=== PATIENT | female | born 1960 | race Caucasian/White ===

== ENCOUNTER 2022-01-05 09:37 | Inpatient (IN) ==
[2022-01-05] MEDS ORDERED: methylPREDNISolone SOD SUCC 125 mg 2 ML VIAL IV ONE (09:55)
[2022-01-05] MEDS ORDERED: C1 Esterase Inhib (Human) 500 UNIT INJ IV ONE ×3 (09:57→16:12)
[2022-01-05 10:41] LABS: ABS Lymphocytes 0.9 10^3/ul (1.0-4.8); ABS Monocytes 0.4 10^3/ul (0-0.8); ABS Neutrophils 3.6 10^3/ul (1.5-7.7); Eosinophil % 0.9 %; Hematocrit 38 % (35-47); Hemoglobin 13.1 g/dL (12.0-16.0); Lymphocyte % 17.5 %; Mean Corpuscular HGB Conc 35 g/dL (31-36); Mean Corpuscular Hemoglobin 31 pg (27-31); Mean Corpuscular Volume 90 fL (80-97); Mean Platelet Volume 6.9 fL (7.4-10.4); Platelet Count 206 10^3/uL (150-450); Red Blood Count 4.23 10^6 /uL (3.70-4.87); Red Cell Distribution Width 13 % (10-15); White Blood Count 4.9 10^3/uL (3.5-10.8)
[2022-01-05] MEDS ORDERED: Ondansetron 4 mg VIAL 2 MG/ML 2 ml VIAL IV ONE (11:03)
[2022-01-05] MEDS ORDERED: fentaNYL 100 mcg/2 ml 50 MCG/ML VIAL IV SLOW PU ONE ×3 (11:03→15:56)
[2022-01-05 11:48] LABS: ALT 13 U/L (7-52); AST 15 U/L (13-39); Albumin 4.3 g/dL (3.2-5.2); Albumin/Globulin Ratio 1.7 (1-3); Alkaline Phosphatase 85 U/L (35-149); Anion Gap 5 mmol/L (2-11); Blood Urea Nitrogen 15 mg/dL (6-24); CO2 Carbon Dioxide 30 mmol/L (22-32); Calcium 9.9 mg/dL (8.6-10.3); Chloride 107 mmol/L (101-111); Globulin 2.5 g/dL (2-4); Glucose 87 mg/dL (70-100); Potassium 4.2 mmol/L (3.5-5.0); Sodium 142 mmol/L (135-145); Total Protein 6.8 g/dL (6.4-8.9); eGFR CKD-EPI 99.6 (>60)
[2022-01-05 12:52] LABS: C Reactive Protein < 1.00 mg/L (<8.01); Lipase 22 U/L (11.0-82.0)
[2022-01-05] MEDS ORDERED: Iohexol 350 (CONTRAST) 500 ML MDV IV ONE (13:16)
[2022-01-05] MEDS: Lactated Ringers 1000 ml BAG 1,000 ML IV SCH ×2 (14:18→23:38)
[2022-01-05] MEDS: fentaNYL 100 mcg/2 ml 50 MCG/ML VIAL IV SLOW PU PRN ×2 (18:49→23:34)
[2022-01-05] MEDS: Ondansetron 4 mg VIAL 2 MG/ML 2 ml VIAL IV PRN (20:36)
[2022-01-06] MEDS: fentaNYL 100 mcg/2 ml 50 MCG/ML VIAL IV SLOW PU PRN ×7 (03:27→22:18)
[2022-01-06] MEDS: Ondansetron 4 mg VIAL 2 MG/ML 2 ml VIAL IV PRN ×3 (03:27→22:19)
[2022-01-06] MEDS ORDERED: fentaNYL 100 mcg/2 ml 50 MCG/ML VIAL IV SLOW PU PRN ×2 (03:53→05:31)
[2022-01-06 05:53] LABS: Hematocrit 35 % (35-47); Hemoglobin 12.4 g/dL (12.0-16.0); Mean Corpuscular HGB Conc 35 g/dL (31-36); Mean Corpuscular Hemoglobin 31 pg (27-31); Mean Corpuscular Volume 89 fL (80-97); Mean Platelet Volume 7.3 fL (7.4-10.4); Platelet Count 212 10^3/uL (150-450); Red Blood Count 3.93 10^6 /uL (3.70-4.87); Red Cell Distribution Width 13 % (10-15); White Blood Count 8.3 10^3/uL (3.5-10.8)
[2022-01-06 06:00] LABS: ABS Lymphocytes 0.9 10^3/ul (1.0-4.8); ABS Monocytes 0.5 10^3/ul (0-0.8); ABS Neutrophils 7.1 10^3/ul (1.5-7.7); Lymphocyte % 11.1 %
[2022-01-06 06:12] LABS: Albumin 3.9 g/dL (3.2-5.2); Albumin/Globulin Ratio 1.9 (1-3); Calcium 9.4 mg/dL (8.6-10.3); Globulin 2.1 g/dL (2-4); Potassium 3.8 mmol/L (3.5-5.0); Total Bilirubin 0.5 mg/dL (0.2-1.0); eGFR CKD-EPI 99.6 (>60)
[2022-01-06] MEDS ORDERED: fentaNYL 100 mcg/2 ml 50 MCG/ML VIAL IV SLOW PU ONE (06:25)
[2022-01-06] MEDS: D5W 1/2 NS 1000 ml BAG 1,000 ML IV SCH ×2 (10:48→17:48)
[2022-01-06] MEDS: C1 ESTERASE INHIBITOR SUBCUT SCH (11:58)
[2022-01-07] MEDS: fentaNYL 100 mcg/2 ml 50 MCG/ML VIAL IV SLOW PU PRN ×9 (01:52→23:06)
[2022-01-07] MEDS: D5W 1/2 NS 1000 ml BAG 1,000 ML IV SCH ×3 (01:55→21:12)
[2022-01-07] MEDS: Ondansetron 4 mg VIAL 2 MG/ML 2 ml VIAL IV PRN ×2 (06:29→18:47)
[2022-01-07] MEDS ORDERED: Metoclopramide 5 MG/ML VIAL (10 mg) IV PRN (10:46)
[2022-01-07] MEDS ORDERED: fentaNYL 100 mcg/2 ml 50 MCG/ML VIAL IV SLOW PU PRN (16:48)
[2022-01-07] MEDS: Nystatin TOP POWDER 15 GM BTL TOPICAL SCH (21:46)
[2022-01-08] MEDS: fentaNYL 100 mcg/2 ml 50 MCG/ML VIAL IV SLOW PU PRN ×10 (00:56→23:03)
[2022-01-08] MEDS: D5W 1/2 NS 1000 ml BAG 1,000 ML IV SCH ×2 (05:05→21:26)
[2022-01-08 07:23] LABS: Calcium 8.7 mg/dL (8.6-10.3); Potassium 3.6 mmol/L (3.5-5.0); eGFR CKD-EPI 101.1 (>60)
[2022-01-08 10:04] LABS: Hematocrit 35 % (35-47); Hemoglobin 12.5 g/dL (12.0-16.0); Mean Corpuscular HGB Conc 36 g/dL (31-36); Mean Corpuscular Hemoglobin 32 pg (27-31); Mean Corpuscular Volume 89 fL (80-97); Red Blood Count 3.96 10^6 /uL (3.70-4.87); Red Cell Distribution Width 13 % (10-15)
[2022-01-08 10:05] LABS: ABS Lymphocytes 0.9 10^3/ul (1.0-4.8); ABS Monocytes 0.4 10^3/ul (0-0.8); ABS Neutrophils 3.6 10^3/ul (1.5-7.7); Eosinophil % 0.8 %; Lymphocyte % 18.7 %; Mean Platelet Volume 8.5 fL (7.4-10.4); Platelet Count 140 10^3/uL (150-450)
[2022-01-08] MEDS: Nystatin TOP POWDER 15 GM BTL TOPICAL SCH ×2 (11:22→21:34)
[2022-01-08] MEDS: fentaNYL PATCH 12 MCG/HR 1 PATCH TRANSDERM SCH (12:30)
[2022-01-08] MEDS: Scopolamine 1 mg/72hr PATCH TRANSDERM SCH (18:43)
[2022-01-08] MEDS: fentaNYL Patch Check Q Shift NOTE FOLLOW UP SCH (19:50)
[2022-01-09] MEDS: fentaNYL 100 mcg/2 ml 50 MCG/ML VIAL IV SLOW PU PRN ×8 (01:03→21:19)
[2022-01-09] MEDS: D5W 1/2 NS 1000 ml BAG 1,000 ML IV SCH ×4 (05:16→22:17)
[2022-01-09] MEDS: fentaNYL Patch Check Q Shift NOTE FOLLOW UP SCH (07:21)
[2022-01-09] MEDS: C1 ESTERASE INHIBITOR SUBCUT SCH (12:59)
[2022-01-09] MEDS: Nystatin TOP POWDER 15 GM BTL TOPICAL SCH ×2 (12:59→21:22)
[2022-01-09] MEDS: Magnesium Hydroxide LIQ 30 ML UDC PO PRN (17:48)
[2022-01-09] MEDS: Ondansetron 4 mg VIAL 2 MG/ML 2 ml VIAL IV PRN (21:22)
[2022-01-10] MEDS: fentaNYL 100 mcg/2 ml 50 MCG/ML VIAL IV SLOW PU PRN ×5 (03:24→21:47)
[2022-01-10] MEDS: D5W 1/2 NS 1000 ml BAG 1,000 ML IV SCH ×2 (06:24→14:26)
[2022-01-10] MEDS: Ondansetron 4 mg VIAL 2 MG/ML 2 ml VIAL IV PRN (06:25)
[2022-01-10] MEDS: fentaNYL Patch Check Q Shift NOTE FOLLOW UP SCH ×2 (07:34→19:26)
[2022-01-10] MEDS: Nystatin TOP POWDER 15 GM BTL TOPICAL SCH ×2 (09:31→21:57)
[2022-01-10] MEDS: Magnesium Hydroxide LIQ 30 ML UDC PO PRN (09:40)
[2022-01-11] MEDS: fentaNYL 100 mcg/2 ml 50 MCG/ML VIAL IV SLOW PU PRN ×8 (01:37→21:21)
[2022-01-11] MEDS: Ondansetron 4 mg VIAL 2 MG/ML 2 ml VIAL IV PRN ×2 (01:37→19:31)
[2022-01-11] MEDS: D5W 1/2 NS 1000 ml BAG 1,000 ML IV SCH ×2 (06:01→23:42)
[2022-01-11] MEDS: fentaNYL Patch Check Q Shift NOTE FOLLOW UP SCH ×2 (07:36→19:25)
[2022-01-11] MEDS: Nystatin TOP POWDER 15 GM BTL TOPICAL SCH ×2 (10:19→22:04)
[2022-01-11] MEDS: fentaNYL PATCH 12 MCG/HR 1 PATCH TRANSDERM SCH (11:18)
[2022-01-11] MEDS: Magnesium Hydroxide LIQ 30 ML UDC PO PRN (17:07)
[2022-01-11] MEDS: Scopolamine 1 mg/72hr PATCH TRANSDERM SCH (17:07)
[2022-01-12] MEDS: fentaNYL 100 mcg/2 ml 50 MCG/ML VIAL IV SLOW PU PRN ×6 (03:56→22:04)
[2022-01-12] MEDS: Magnesium Hydroxide LIQ 30 ML UDC PO PRN (05:53)
[2022-01-12] MEDS: fentaNYL Patch Check Q Shift NOTE FOLLOW UP SCH ×2 (07:26→19:18)
[2022-01-12] MEDS: D5W 1/2 NS 1000 ml BAG 1,000 ML IV SCH ×2 (07:26→17:22)
[2022-01-12] MEDS: Nystatin TOP POWDER 15 GM BTL TOPICAL SCH ×2 (08:13→20:05)
[2022-01-12] MEDS: Ondansetron 4 mg VIAL 2 MG/ML 2 ml VIAL IV PRN ×2 (08:23→17:30)
[2022-01-12 12:40] LABS: Potassium 4.1 mmol/L (3.5-5.0); eGFR CKD-EPI 101.5 (>60)
[2022-01-12] MEDS ORDERED: Sodium Phosphate ADULT ENEMA 133 ML BTL PR ONE (16:37)
[2022-01-13] MEDS: D5W 1/2 NS 1000 ml BAG 1,000 ML IV SCH ×2 (00:10→19:15)
[2022-01-13] MEDS: fentaNYL 100 mcg/2 ml 50 MCG/ML VIAL IV SLOW PU PRN ×5 (03:03→20:07)
[2022-01-13 06:03] LABS: ABS Eosinophils 0.1 10^3/ul (0-0.6); ABS Lymphocytes 0.9 10^3/ul (1.0-4.8); ABS Monocytes 0.4 10^3/ul (0-0.8); ABS Neutrophils 2.8 10^3/ul (1.5-7.7); Eosinophil % 2.6 %; Hematocrit 35 % (35-47); Hemoglobin 11.8 g/dL (12.0-16.0); Lymphocyte % 21.3 %; Mean Corpuscular HGB Conc 34 g/dL (31-36); Mean Corpuscular Hemoglobin 30 pg (27-31); Mean Corpuscular Volume 89 fL (80-97); Mean Platelet Volume 7.8 fL (7.4-10.4); Platelet Count 174 10^3/uL (150-450); Red Blood Count 3.93 10^6 /uL (3.70-4.87); Red Cell Distribution Width 14 % (10-15); White Blood Count 4.2 10^3/uL (3.5-10.8)
[2022-01-13 06:29] LABS: Calcium 9.1 mg/dL (8.6-10.3); eGFR CKD-EPI 95.7 (>60)
[2022-01-13] MEDS: fentaNYL Patch Check Q Shift NOTE FOLLOW UP SCH ×2 (08:11→19:21)
[2022-01-13] MEDS: Ondansetron 4 mg VIAL 2 MG/ML 2 ml VIAL IV PRN (10:48)
[2022-01-13] MEDS: Nystatin TOP POWDER 15 GM BTL TOPICAL SCH ×2 (13:24→21:32)
[2022-01-13] MEDS: C1 ESTERASE INHIBITOR SUBCUT SCH (14:47)
[2022-01-13] MEDS ORDERED: fentaNYL PATCH 25 MCG/HR 1 PATCH TRANSDERM SCH (15:00)
[2022-01-14] MEDS: D5W 1/2 NS 1000 ml BAG 1,000 ML IV SCH ×3 (03:05→21:49)
[2022-01-14 06:20] LABS: ABS Eosinophils 0.1 10^3/ul (0-0.6); ABS Lymphocytes 0.8 10^3/ul (1.0-4.8); ABS Monocytes 0.3 10^3/ul (0-0.8); ABS Neutrophils 2.5 10^3/ul (1.5-7.7); Eosinophil % 2.9 %; Hematocrit 33 % (35-47); Hemoglobin 10.6 g/dL (12.0-16.0); Lymphocyte % 21.9 %; Mean Corpuscular HGB Conc 32 g/dL (31-36); Mean Corpuscular Hemoglobin 29 pg (27-31); Mean Corpuscular Volume 89 fL (80-97); Mean Platelet Volume 7.7 fL (7.4-10.4); Nucleated Red Blood Cells % 0.1; Platelet Count 176 10^3/uL (150-450); Red Blood Count 3.66 10^6 /uL (3.70-4.87); Red Cell Distribution Width 13 % (10-15); White Blood Count 3.8 10^3/uL (3.5-10.8)
[2022-01-14 06:31] LABS: Calcium 8.6 mg/dL (8.6-10.3); eGFR CKD-EPI 99.6 (>60)
[2022-01-14] MEDS: fentaNYL Patch Check Q Shift NOTE FOLLOW UP SCH ×2 (06:53→19:22)
[2022-01-14] MEDS: fentaNYL 100 mcg/2 ml 50 MCG/ML VIAL IV SLOW PU PRN ×2 (07:11→11:46)
[2022-01-14] MEDS: Nystatin TOP POWDER 15 GM BTL TOPICAL SCH ×2 (07:15→21:52)
[2022-01-14] MEDS: Scopolamine 1 mg/72hr PATCH TRANSDERM SCH (17:46)
[2022-01-14] MEDS ORDERED: fentaNYL 100 mcg/2 ml 50 MCG/ML VIAL IV SLOW PU ONE (17:50)
[2022-01-14] MEDS ORDERED: C1 ESTERASE INHIBITOR SUBCUT SCH (18:30)
[2022-01-15 06:14] LABS: ABS Eosinophils 0.1 10^3/ul (0-0.6); ABS Lymphocytes 0.8 10^3/ul (1.0-4.8); ABS Monocytes 0.4 10^3/ul (0-0.8); ABS Neutrophils 2.9 10^3/ul (1.5-7.7); Eosinophil % 2.3 %; Hematocrit 35 % (35-47); Hemoglobin 11.5 g/dL (12.0-16.0); Lymphocyte % 19.9 %; Mean Corpuscular HGB Conc 33 g/dL (31-36); Mean Corpuscular Hemoglobin 30 pg (27-31); Mean Corpuscular Volume 89 fL (80-97); Mean Platelet Volume 7.5 fL (7.4-10.4); Nucleated Red Blood Cells % 0.1; Platelet Count 173 10^3/uL (150-450); Red Blood Count 3.87 10^6 /uL (3.70-4.87); Red Cell Distribution Width 13 % (10-15); White Blood Count 4.3 10^3/uL (3.5-10.8)
[2022-01-15 06:53] LABS: Calcium 9.1 mg/dL (8.6-10.3); Potassium 4.3 mmol/L (3.5-5.0); eGFR CKD-EPI 98.9 (>60)
[2022-01-15] MEDS: fentaNYL Patch Check Q Shift NOTE FOLLOW UP SCH (07:47)
[2022-01-15] MEDS: Nystatin TOP POWDER 15 GM BTL TOPICAL SCH (08:20)
[2022-01-15] MEDS ORDERED: Sodium Phosphate ADULT ENEMA 133 ML BTL PR ONE (09:54)
[2022-01-15 11:22] VITALS: BP 118/57
== END 2022-01-15 15:55 | disposition home or self-care (01) | DRG 642 ==
LOC: ED 09:37 → SUATTDRO 17:07 → EDHOLD 17:07 → MED 20:00
PROVIDERS: ADMIT Internal Medicine; ATTEND Internal Medicine

== ENCOUNTER 2023-01-22 09:36 | Inpatient (IN) ==
[2023-01-22] MEDS ORDERED: fentaNYL 100 mcg/2 ml 50 MCG/ML VIAL IV SLOW PU ONE ×2 (11:27→13:28)
[2023-01-22] MEDS ORDERED: methylPREDNISolone SOD SUCC 125 mg 2 ML VIAL IV ONE (11:27)
[2023-01-22 12:26] LABS: Urine Appearance Clear; Urine Bilirubin Negative (Negative); Urine Blood Negative (Negative); Urine Color Straw; Urine Glucose Negative (Negative); Urine Ketones Negative (Negative); Urine Nitrite Negative (Negative); Urine Protein Negative (Negative); Urine Specific Gravity 1.011 (1.002-1.030); Urine Urobilinogen Negative (Negative)
[2023-01-22 12:30] LABS: ABS Lymphocytes 0.5 10^3/uL (1.0-4.8); ABS Monocytes 0.2 10^3/uL (0.0-0.9); ABS Neutrophils 6.6 10^3/uL (1.5-7.6); Eosinophil % 0.5 %; Hematocrit 38.2 % (35-45); Hemoglobin 13.1 g/dL (11.5-14.3); Mean Corpuscular Hemoglobin 30.5 pg (27-33); Mean Corpuscular Hgb Conc 34.4 g/dL (31-36); Mean Corpuscular Volume 88.5 fL (80-97); Mean Platelet Volume 7.2 fL (7.5-11.2); Platelet Count 186 10^3/uL (150-450); Red Blood Count 4.31 10^6/uL (3.63-4.92); Red Cell Distribution Width 13.3 % (12-17); White Blood Count 7.4 10^3/uL (3.8-11.8)
[2023-01-22 12:38] LABS: INR 0.96 (0.83-1.13)
[2023-01-22 12:40] LABS: Albumin 4.3 g/dL (3.2-5.2); Albumin/Globulin Ratio 1.7 (1-3); C Reactive Protein 1.22 mg/L (<8.01); Calcium 9.1 mg/dL (8.6-10.3); Creatinine, Serum 0.61 mg/dL (0.51-0.95); Globulin 2.5 g/dL (2-4); Total Bilirubin 0.6 mg/dL (0.2-1.0); Total Protein 6.8 g/dL (6.4-8.9); eGFR CKD-EPI 101.7 (>60)
[2023-01-22] MEDS ORDERED: Iohexol 350 (CONTRAST) 500 ML MDV IV ONE (13:18)
[2023-01-22] MEDS ORDERED: Ondansetron 4 mg VIAL 2 MG/ML 2 ml VIAL IV ONE (13:28)
[2023-01-22] MEDS ORDERED: C1 Esterase Inhib (Human) 500 UNIT INJ IV ONE ×2 (15:53→17:00)
[2023-01-22] MEDS ORDERED: fentaNYL 100 mcg/2 ml 50 MCG/ML VIAL IV SLOW PU PRN ×2 (15:56→17:33)
[2023-01-22] MEDS ORDERED: Enoxaparin 40 MG/0.4 ML SYR SUBCUT SCH (16:00)
[2023-01-22] MEDS ORDERED: Ondansetron 4 mg VIAL 2 MG/ML 2 ml VIAL IV PRN (17:34)
[2023-01-22] MEDS ORDERED: Scopolamine 1 mg/72hr PATCH TRANSDERM SCH (18:00)
[2023-01-22] MEDS ORDERED: Lactated Ringers 1000 ml BAG 1,000 ML IV SCH (18:00)
[2023-01-22] MEDS: Lactated Ringers 1000 ml BAG 1,000 ML IV SCH (20:16)
[2023-01-22] MEDS ORDERED: Naloxone 0.4 mg VIAL 0.4 mg/ml 1 ml VIAL IV PUSH PRN (21:53)
[2023-01-22] MEDS: fentaNYL 100 mcg/2 ml 50 MCG/ML VIAL IV SLOW PU PRN (22:06)
[2023-01-23] MEDS: fentaNYL 100 mcg/2 ml 50 MCG/ML VIAL IV SLOW PU PRN ×2 (00:10→02:42)
[2023-01-23] MEDS: fentaNYL PATCH 12 MCG/HR 1 PATCH TRANSDERM SCH (03:47)
[2023-01-23 06:06] LABS: ABS Lymphocytes 0.7 10^3/uL (1.0-4.8); ABS Monocytes 0.3 10^3/uL (0.0-0.9); ABS Neutrophils 5.2 10^3/uL (1.5-7.6); ABS Nucleated RBC 0.01 10^3/ul; Hematocrit 36.8 % (35-45); Hemoglobin 12.7 g/dL (11.5-14.3); Lymphocyte % 11.6 %; Mean Corpuscular Hemoglobin 30.3 pg (27-33); Mean Corpuscular Hgb Conc 34.4 g/dL (31-36); Mean Platelet Volume 6.8 fL (7.5-11.2); Nucleated Red Blood Cells % 0.2 /100 WBC (0.0-0.4); Platelet Count 181 10^3/uL (150-450); Red Blood Count 4.18 10^6/uL (3.63-4.92); Red Cell Distribution Width 13.4 % (12-17); White Blood Count 6.3 10^3/uL (3.8-11.8)
[2023-01-23 06:24] LABS: Calcium 9.2 mg/dL (8.6-10.3); Creatinine, Serum 0.66 mg/dL (0.51-0.95); Magnesium 1.8 mg/dL (1.9-2.7); Potassium 3.7 mmol/L (3.5-5.0); eGFR CKD-EPI 99.7 (>60)
[2023-01-23] MEDS: fentaNYL Patch Check Q Shift NOTE FOLLOW UP SCH ×2 (07:05→19:14)
[2023-01-23] MEDS ORDERED: Magnesium Sulfate 2 gm BAG 2 GM/50 ML BAG IVPB ONE (08:00)
[2023-01-23] MEDS ORDERED: Ondansetron ODT 4 mg TAB 4 MG TAB PO PRN (09:05)
[2023-01-23] MEDS ORDERED: C1 Esterase Inhib (Human) 500 UNIT INJ IV ONE (09:55)
[2023-01-23] MEDS: Ondansetron ODT 4 mg TAB 4 MG TAB SL PRN (10:17)
[2023-01-23] MEDS ORDERED: fentaNYL 100 mcg/2 ml 50 MCG/ML VIAL IV SLOW PU PRN (13:49)
[2023-01-23] MEDS: Lactated Ringers 1000 ml BAG 1,000 ML IV SCH (19:54)
[2023-01-24] MEDS ORDERED: Acetaminophen IV 1 GM/100ML 1,000 MG/100 ML BAG IV ONE (01:09)
[2023-01-24] MEDS: Ondansetron ODT 4 mg TAB 4 MG TAB SL PRN ×2 (02:07→16:17)
[2023-01-24] MEDS ORDERED: NS 0.9% 1000 ml BAG 1,000 ML IV ONE (06:04)
[2023-01-24 06:25] LABS: ABS Lymphocytes 0.9 10^3/uL (1.0-4.8); ABS Monocytes 0.4 10^3/uL (0.0-0.9); ABS Neutrophils 3.5 10^3/uL (1.5-7.6); Eosinophil % 0.4 %; Hematocrit 35.7 % (35-45); Hemoglobin 12.2 g/dL (11.5-14.3); Lymphocyte % 17.6 %; Mean Corpuscular Hemoglobin 30.6 pg (27-33); Mean Corpuscular Volume 89.9 fL (80-97); Mean Platelet Volume 7.8 fL (7.5-11.2); Platelet Count 152 10^3/uL (150-450); Red Blood Count 3.98 10^6/uL (3.63-4.92); Red Cell Distribution Width 13.5 % (12-17); White Blood Count 4.8 10^3/uL (3.8-11.8)
[2023-01-24 06:44] LABS: Calcium 8.9 mg/dL (8.6-10.3); Creatinine, Serum 0.56 mg/dL (0.51-0.95); Magnesium 1.8 mg/dL (1.9-2.7); Potassium 3.9 mmol/L (3.5-5.0); eGFR CKD-EPI 103.8 (>60)
[2023-01-24] MEDS: fentaNYL Patch Check Q Shift NOTE FOLLOW UP SCH ×2 (07:05→20:11)
[2023-01-24] MEDS ORDERED: Magnesium Sulfate IV 1GM/100ML 1 GM/100 ML BAG IV ONE (08:35)
[2023-01-24] MEDS ORDERED: Acetaminophen IV 1 GM/100ML 1,000 MG/100 ML BAG IV PRN (09:33)
[2023-01-24] MEDS ORDERED: fentaNYL 100 mcg/2 ml 50 MCG/ML VIAL IV SLOW PU PRN (13:35)
[2023-01-24] MEDS ORDERED: [UNRECOGNIZED DRUG - OTHER] SUBCUT SCH (15:00)
[2023-01-24] MEDS: Polyethylene Glycol 3350 17 GM PACKET PO SCH (18:13)
[2023-01-24] MEDS: Acetaminophen IV 1 GM/100ML 1,000 MG/100 ML BAG IV SCH (20:27)
[2023-01-24] MEDS: D5LR 1000 ml BAG 1,000 ML IV SCH (20:46)
[2023-01-25] MEDS: Acetaminophen IV 1 GM/100ML 1,000 MG/100 ML BAG IV SCH ×3 (04:24→20:38)
[2023-01-25 06:15] LABS: Calcium 8.2 mg/dL (8.6-10.3); Creatinine, Serum 0.5 mg/dL (0.51-0.95); Potassium 3.6 mmol/L (3.5-5.0); eGFR CKD-EPI 106.6 (>60)
[2023-01-25] MEDS: D5LR 1000 ml BAG 1,000 ML IV SCH ×2 (07:05→16:12)
[2023-01-25] MEDS: fentaNYL Patch Check Q Shift NOTE FOLLOW UP SCH ×2 (07:25→19:34)
[2023-01-25] MEDS: Ondansetron ODT 4 mg TAB 4 MG TAB SL PRN (08:16)
[2023-01-25] MEDS: Polyethylene Glycol 3350 17 GM PACKET PO SCH (11:24)
[2023-01-26] MEDS: Acetaminophen IV 1 GM/100ML 1,000 MG/100 ML BAG IV SCH ×3 (03:26→18:19)
[2023-01-26] MEDS: fentaNYL PATCH 12 MCG/HR 1 PATCH TRANSDERM SCH (03:56)
[2023-01-26] MEDS: D5LR 1000 ml BAG 1,000 ML IV SCH ×2 (05:12→13:34)
[2023-01-26 06:44] LABS: Calcium 8.9 mg/dL (8.6-10.3); Creatinine, Serum 0.54 mg/dL (0.51-0.95); Potassium 3.6 mmol/L (3.5-5.0); eGFR CKD-EPI 104.7 (>60)
[2023-01-26] MEDS ORDERED: Senna TAB 8.6 mg TAB PO ONE (07:17)
[2023-01-26] MEDS: fentaNYL Patch Check Q Shift NOTE FOLLOW UP SCH ×2 (07:35→19:07)
[2023-01-26] MEDS: Polyethylene Glycol 3350 17 GM PACKET PO SCH (09:05)
[2023-01-26] MEDS: fentaNYL 100 mcg/2 ml 50 MCG/ML VIAL IV SLOW PU PRN (13:27)
[2023-01-26] MEDS: Ondansetron ODT 4 mg TAB 4 MG TAB SL PRN (15:35)
[2023-01-26] MEDS: Scopolamine 1 mg/72hr PATCH TRANSDERM SCH (18:18)
[2023-01-27] MEDS: fentaNYL 100 mcg/2 ml 50 MCG/ML VIAL IV SLOW PU PRN (01:40)
[2023-01-27] MEDS: Acetaminophen IV 1 GM/100ML 1,000 MG/100 ML BAG IV SCH ×3 (04:54→18:49)
[2023-01-27] MEDS: D5LR 1000 ml BAG 1,000 ML IV SCH (05:02)
[2023-01-27 06:58] LABS: Calcium 8.3 mg/dL (8.6-10.3); Creatinine, Serum 0.57 mg/dL (0.51-0.95); Potassium 3.6 mmol/L (3.5-5.0); eGFR CKD-EPI 103.3 (>60)
[2023-01-27] MEDS: fentaNYL Patch Check Q Shift NOTE FOLLOW UP SCH ×2 (07:13→19:01)
[2023-01-27] MEDS: Polyethylene Glycol 3350 17 GM PACKET PO SCH (09:15)
[2023-01-27] MEDS ORDERED: Lactated Ringers 1000 ml BAG 1,000 ML IV SCH ×2 (11:00→13:09)
[2023-01-27] MEDS: Pantoprazole VIAL 40 MG VIAL IV SCH ×2 (12:52→22:42)
[2023-01-27] MEDS: Ondansetron ODT 4 mg TAB 4 MG TAB SL PRN (22:43)
[2023-01-28] MEDS: fentaNYL 100 mcg/2 ml 50 MCG/ML VIAL IV SLOW PU PRN ×2 (02:08→08:28)
[2023-01-28] MEDS: Acetaminophen IV 1 GM/100ML 1,000 MG/100 ML BAG IV SCH ×3 (02:09→22:37)
[2023-01-28] MEDS: fentaNYL Patch Check Q Shift NOTE FOLLOW UP SCH (07:01)
[2023-01-28 07:09] LABS: Calcium 8.5 mg/dL (8.6-10.3); Potassium 3.8 mmol/L (3.5-5.0)
[2023-01-28 07:15] LABS: Creatinine, Serum 0.64 mg/dL (0.51-0.95); eGFR CKD-EPI 100.5 (>60)
[2023-01-28 08:28] LABS: ABS Eosinophils 0.1 10^3/uL (0.0-0.5); ABS Lymphocytes 0.6 10^3/uL (1.0-4.8); ABS Monocytes 0.2 10^3/uL (0.0-0.9); ABS Neutrophils 2.8 10^3/uL (1.5-7.6); Eosinophil % 2.2 %; Hematocrit 32.9 % (35-45); Hemoglobin 11.5 g/dL (11.5-14.3); Mean Corpuscular Hemoglobin 30.9 pg (27-33); Mean Corpuscular Hgb Conc 35.1 g/dL (31-36); Mean Corpuscular Volume 88.1 fL (80-97); Mean Platelet Volume 7.9 fL (7.5-11.2); Nucleated Red Blood Cells % 0.1 /100 WBC (0.0-0.4); Platelet Count 184 10^3/uL (150-450); Red Blood Count 3.73 10^6/uL (3.63-4.92); Red Cell Distribution Width 13.2 % (12-17); White Blood Count 3.7 10^3/uL (3.8-11.8)
[2023-01-28 08:43] LABS: Blood Urea Nitrogen 8 mg/dL (6-24); CO2 Carbon Dioxide 28 mmol/L (22-32); Calcium 9.2 mg/dL (8.6-10.3); Chloride 107 mmol/L (101-111); Creatinine, Serum 0.61 mg/dL (0.51-0.95); Glucose 79 mg/dL (70-100); Sodium 141 mmol/L (135-145); eGFR CKD-EPI 101.7 (>60)
[2023-01-28 08:44] LABS: Anion Gap 6 mmol/L (2-16)
[2023-01-28] MEDS: Pantoprazole VIAL 40 MG VIAL IV SCH ×2 (10:09→23:31)
[2023-01-28] MEDS: Polyethylene Glycol 3350 17 GM PACKET PO SCH (10:26)
[2023-01-28 10:38] LABS: Potassium, Whole Blood 3.5 mmol/L (3.4-4.5)
[2023-01-28] MEDS ORDERED: Polyethylene Glycol 3350 17 GM PACKET PO PRN ×2 (14:55→15:00)
[2023-01-28] MEDS ORDERED: Polyethylene Glycol 3350 17 GM PACKET PO SCH ×3 (15:00→21:00)
[2023-01-28] MEDS: oxyCODONE/Acetamin 5/325 mg TAB PO PRN ×2 (16:01→23:06)
[2023-01-28] MEDS: Polyethylene Glycol 3350 17 GM PACKET PO PRN ×2 (16:01→16:53)
[2023-01-28] MEDS: Ondansetron ODT 4 mg TAB 4 MG TAB SL PRN (23:06)
[2023-01-29] MEDS: Acetaminophen IV 1 GM/100ML 1,000 MG/100 ML BAG IV SCH ×2 (02:09→10:47)
[2023-01-29] MEDS: oxyCODONE/Acetamin 5/325 mg TAB PO PRN ×3 (03:34→21:27)
[2023-01-29] MEDS: Ondansetron ODT 4 mg TAB 4 MG TAB SL PRN (10:44)
[2023-01-29] MEDS: Polyethylene Glycol 3350 17 GM PACKET PO SCH (10:46)
[2023-01-29] MEDS ORDERED: Polyethylene Glycol 3350 17 GM PACKET PO SCH (13:10)
[2023-01-29] MEDS: Scopolamine 1 mg/72hr PATCH TRANSDERM SCH (16:02)
[2023-01-29] MEDS ORDERED: PEG 3000 GI LAVAGE 1 GALLON PO ONE (19:02)
[2023-01-30] MEDS: oxyCODONE/Acetamin 5/325 mg TAB PO PRN ×3 (06:34→17:57)
[2023-01-30] MEDS: Ondansetron ODT 4 mg TAB 4 MG TAB SL PRN ×2 (06:34→17:55)
[2023-01-30] MEDS ORDERED: Polyethylene Glycol 3350 BTL 238 GM BTL PO ONE (07:38)
[2023-01-30] MEDS ORDERED: PEG 3000 GI LAVAGE 1 GALLON PO ONE (09:00)
[2023-01-30] MEDS: Polyethylene Glycol 3350 17 GM PACKET PO SCH (09:02)
[2023-01-31] MEDS: oxyCODONE/Acetamin 5/325 mg TAB PO PRN ×4 (00:14→20:43)
[2023-01-31] MEDS: Ondansetron ODT 4 mg TAB 4 MG TAB SL PRN ×2 (07:22→15:28)
[2023-01-31] MEDS: Polyethylene Glycol 3350 17 GM PACKET PO SCH (07:27)
[2023-02-01] MEDS: oxyCODONE/Acetamin 5/325 mg TAB PO PRN ×2 (00:48→07:41)
[2023-02-01] MEDS: Polyethylene Glycol 3350 17 GM PACKET PO SCH (07:41)
[2023-02-01] MEDS: Ondansetron ODT 4 mg TAB 4 MG TAB SL PRN (07:41)
[2023-02-01] MEDS ORDERED: oxyCODONE/Acetamin 5/325 mg TAB PO PRN (07:51)
[2023-02-01 10:00] VITALS: BP 112/62
== END 2023-02-01 13:14 | disposition home or self-care (01) | DRG 642 ==
LOC: ED 09:36 → SUATTDRO 15:14 → EDHOLD 15:14 → MEDTELE 20:16
PROVIDERS: ADMIT Internal Medicine; ATTEND Hospitalist

== ENCOUNTER 2023-07-07 09:26 | Inpatient (IN) ==
[2023-07-07 11:33] LABS: ABS Eosinophils 0.1 10^3/uL (0.0-0.5); ABS Lymphocytes 0.8 10^3/uL (1.0-4.8); ABS Monocytes 0.5 10^3/uL (0.0-0.9); ABS Neutrophils 3.5 10^3/uL (1.5-7.6); ABS Nucleated RBC 0.01 10^3/ul; Eosinophil % 1.4 %; Hematocrit 38.9 % (35-45); Hemoglobin 13.1 g/dL (11.5-14.3); Lymphocyte % 16.1 %; Mean Corpuscular Hgb Conc 33.8 g/dL (31-36); Mean Corpuscular Volume 88.6 fL (80-97); Mean Platelet Volume 7.1 fL (7.5-11.2); Nucleated Red Blood Cells % 0.2 %/100WBC (0.0-0.8); Platelet Count 213 10^3/uL (150-450); Red Blood Count 4.38 10^6/uL (3.63-4.92); Red Cell Distribution Width 13.4 % (12-17); White Blood Count 4.9 10^3/uL (3.8-11.8)
[2023-07-07] MEDS: Lactated Ringers 1000 ml BAG 1,000 ML IV ONE (12:06)
[2023-07-07] MEDS: Ondansetron 4 mg VIAL 2 MG/ML 2 ml VIAL IV ONE (12:08)
[2023-07-07] MEDS: fentaNYL 100 mcg/2 ml 50 MCG/ML VIAL IV SLOW PU ONE ×2 (12:08→14:53)
[2023-07-07 12:14] LABS: Albumin 4.7 g/dL (3.2-5.2); Albumin/Globulin Ratio 1.7 (1-3); Calcium 9.7 mg/dL (8.6-10.3); Creatinine, Serum 0.65 mg/dL (0.51-0.95); Globulin 2.7 g/dL (2-4); Potassium 3.7 mmol/L (3.5-5.0); Total Bilirubin 0.6 mg/dL (0.2-1.0); Total Protein 7.4 g/dL (6.4-8.9); eGFR CKD-EPI 100.1 (>60)
[2023-07-07] MEDS: Iohexol 300 (CONTRAST) 10 ML SDV IV ONE (13:18)
[2023-07-07] MEDS ORDERED: fentaNYL 100 mcg/2 ml 50 MCG/ML VIAL IV SLOW PU PRN (16:46)
[2023-07-07] MEDS: fentaNYL 100 mcg/2 ml 50 MCG/ML VIAL IV SLOW PU PRN ×2 (17:20→19:49)
[2023-07-07] MEDS: NS 0.9% 1000 ml BAG 1,000 ML IV SCH (17:34)
[2023-07-07] MEDS ORDERED: Naloxone 0.4 mg VIAL 0.4 mg/ml 1 ml VIAL IV PUSH PRN (19:06)
[2023-07-07] MEDS: Ondansetron 4 mg VIAL 2 MG/ML 2 ml VIAL IV PRN (19:54)
[2023-07-07] MEDS: C1 Esterase Inhib (Human) 500 UNIT INJ IV ONE (21:12)
[2023-07-07] MEDS: Prochlorperazine 5 mg/ml 2 ml VIAL (10 mg) IV PRN (22:05)
[2023-07-08 05:52] LABS: ABS Lymphocytes 0.5 10^3/uL (1.0-4.8); ABS Monocytes 0.5 10^3/uL (0.0-0.9); Eosinophil % 0.6 %; Hemoglobin 12.2 g/dL (11.5-14.3); Lymphocyte % 8.7 %; Mean Corpuscular Hgb Conc 33.8 g/dL (31-36); Mean Corpuscular Volume 88.8 fL (80-97); Mean Platelet Volume 7.3 fL (7.5-11.2); Nucleated Red Blood Cells % 0.1 %/100WBC (0.0-0.8); Platelet Count 180 10^3/uL (150-450); Red Blood Count 4.05 10^6/uL (3.63-4.92); Red Cell Distribution Width 13.2 % (12-17); White Blood Count 6.1 10^3/uL (3.8-11.8)
[2023-07-08 06:09] LABS: Creatinine, Serum 0.62 mg/dL (0.51-0.95); Potassium 3.8 mmol/L (3.5-5.0); eGFR CKD-EPI 101.3 (>60)
[2023-07-08] MEDS: D5LR 1000 ml BAG 1,000 ML IV SCH (09:40)
[2023-07-08] MEDS: fentaNYL 100 mcg/2 ml 50 MCG/ML VIAL IV SLOW PU PRN ×2 (09:42→11:48)
[2023-07-08] MEDS: Acetaminophen IV 1 GM/100ML 1,000 MG/100 ML BAG IV PRN (12:09)
[2023-07-09 13:20] LABS: Calcium 9.1 mg/dL (8.6-10.3); Creatinine, Serum 0.55 mg/dL (0.51-0.95); Potassium 3.7 mmol/L (3.5-5.0); eGFR CKD-EPI 104.2 (>60)
[2023-07-10] MEDS: Cholecalciferol (VIT D3) 1,000 unit TAB PO SCH (07:36)
[2023-07-11] MEDS ORDERED: Alendronate 70 mg TAB (NF) PO SCH (05:02)
[2023-07-11] MEDS: fentaNYL 100 mcg/2 ml 50 MCG/ML VIAL IV SLOW PU PRN (08:08)
[2023-07-11] MEDS: Polyethylene Glycol 3350 17 GM PACKET PO PRN (08:20)
[2023-07-11] MEDS: oxyCODONE/Acetamin 5/325 mg TAB PO PRN (11:42)
[2023-07-12] MEDS: fentaNYL PATCH 25 MCG/HR 1 PATCH TRANSDERM SCH (12:24)
[2023-07-12] MEDS: oxyCODONE/Acetamin 5/325 mg TAB PO PRN (12:24)
[2023-07-12] MEDS: fentaNYL 100 mcg/2 ml 50 MCG/ML VIAL IV SLOW PU ONE (13:23)
[2023-07-12] MEDS: fentaNYL Patch Check Q Shift NOTE FOLLOW UP SCH (19:31)
[2023-07-13 12:28] LABS: Calcium 9.4 mg/dL (8.6-10.3); Creatinine, Serum 0.58 mg/dL (0.51-0.95); Magnesium 1.6 mg/dL (1.9-2.7); Potassium 3.6 mmol/L (3.5-5.0); eGFR CKD-EPI 102.9 (>60)
[2023-07-13 13:15] LABS: ABS Eosinophils 0.1 10^3/uL (0.0-0.5); ABS Lymphocytes 1.2 10^3/uL (1.0-4.8); ABS Monocytes 0.2 10^3/uL (0.0-0.9); ABS Neutrophils 2.5 10^3/uL (1.5-7.6); ABS Nucleated RBC 0.04 10^3/ul; Hematocrit 36.2 % (35-45); Hemoglobin 12.2 g/dL (11.5-14.3); Lymphocyte % 29.9 %; Mean Corpuscular Hemoglobin 29.7 pg (27-33); Mean Corpuscular Hgb Conc 33.5 g/dL (31-36); Mean Corpuscular Volume 88.5 fL (80-97); Mean Platelet Volume 7.9 fL (7.5-11.2); Platelet Count 186 10^3/uL (150-450); Red Blood Count 4.09 10^6/uL (3.63-4.92); Red Cell Distribution Width 13.2 % (12-17)
[2023-07-13] MEDS: Magnesium Sulf 4 GM/100 ML IV 4,000 MG/100 ML BAG IVPB ONE (14:55)
[2023-07-15] MEDS: Polyethylene Glycol 3350 17 GM PACKET PO SCH (20:16)
[2023-07-16 06:07] LABS: ABS Eosinophils 0.1 10^3/uL (0.0-0.5); ABS Lymphocytes 0.9 10^3/uL (1.0-4.8); ABS Monocytes 0.3 10^3/uL (0.0-0.9); ABS Neutrophils 3.5 10^3/uL (1.5-7.6); Eosinophil % 1.4 %; Hematocrit 34.8 % (35-45); Hemoglobin 12.1 g/dL (11.5-14.3); Lymphocyte % 18.2 %; Mean Corpuscular Hemoglobin 30.5 pg (27-33); Mean Corpuscular Hgb Conc 34.7 g/dL (31-36); Mean Corpuscular Volume 87.9 fL (80-97); Mean Platelet Volume 7.6 fL (7.5-11.2); Nucleated Red Blood Cells % 0.1 %/100WBC (0.0-0.8); Platelet Count 201 10^3/uL (150-450); Red Blood Count 3.95 10^6/uL (3.63-4.92); Red Cell Distribution Width 13.2 % (12-17); White Blood Count 4.8 10^3/uL (3.8-11.8)
[2023-07-16 06:33] LABS: Calcium 9.1 mg/dL (8.6-10.3); Creatinine, Serum 0.64 mg/dL (0.51-0.95); Magnesium 1.9 mg/dL (1.9-2.7); Potassium 3.8 mmol/L (3.5-5.0); eGFR CKD-EPI 100.5 (>60)
[2023-07-17] MEDS: oxyCODONE/Acetamin 5/325 mg TAB PO PRN (22:39)
[2023-07-18 10:18] VITALS: BP 111/67
== END 2023-07-18 13:30 | disposition home or self-care (01) | DRG 642 ==
LOC: ED 09:26 → EDHOLD 09:26 → SSU 17:08 → SUATTDRO 07-09 11:28
PROVIDERS: ADMIT Internal Medicine; ATTEND Internal Medicine Hematology & Oncology

== ENCOUNTER 2023-12-21 18:49 | Inpatient (IN) ==
[2023-12-22 00:13] LABS: ABS Lymphocytes 1.2 10^3/uL (1.0-4.8); ABS Monocytes 0.4 10^3/uL (0.0-0.9); ABS Neutrophils 3.8 10^3/uL (1.5-7.6); Eosinophil % 0.4 %; Hematocrit 40.8 % (35-45); Hemoglobin 13.5 g/dL (11.5-14.3); Lymphocyte % 22.7 %; Mean Corpuscular Hemoglobin 29.5 pg (27-33); Mean Corpuscular Hgb Conc 33.2 g/dL (31-36); Mean Corpuscular Volume 88.9 fL (80-97); Mean Platelet Volume 7.2 fL (7.5-11.2); Nucleated Red Blood Cells % 0.1 %/100WBC (0.0-0.8); Platelet Count 211 10^3/uL (150-450); Red Cell Distribution Width 13.2 % (12-17); White Blood Count 5.5 10^3/uL (3.8-11.8)
[2023-12-22 00:52] LABS: ALT 16 U/L (7-52); AST 20 U/L (13-39); Albumin 4.7 g/dL (3.2-5.2); Albumin/Globulin Ratio 1.9 (1-3); Alkaline Phosphatase 81 U/L (35-149); Anion Gap 11 mmol/L (2-16); Blood Urea Nitrogen 14 mg/dL (6-24); C Reactive Protein < 1.00 mg/L (<8.01); CO2 Carbon Dioxide 25 mmol/L (22-32); Calcium 10.1 mg/dL (8.6-10.3); Chloride 105 mmol/L (101-111); Creatinine, Serum 0.75 mg/dL (0.51-0.95); Globulin 2.5 g/dL (2-4); Glucose 92 mg/dL (70-100); Sodium 141 mmol/L (135-145); Total Bilirubin 0.8 mg/dL (0.2-1.0); Total Protein 7.2 g/dL (6.4-8.9); eGFR CKD-EPI 90.5 (>60)
[2023-12-22 00:53] LABS: Lipase 35 U/L (11.0-82.0)
[2023-12-22] MEDS: Lactated Ringers 1000 ml BAG 1,000 ML IV ONE (00:57)
[2023-12-22] MEDS: fentaNYL 100 mcg/2 ml 50 MCG/ML VIAL IV SLOW PU ONE ×6 (00:57→10:00)
[2023-12-22] MEDS: C1 Esterase Inhib (Human) 500 UNIT INJ IV ONE (01:29)
[2023-12-22] MEDS: Iohexol 300 (CONTRAST) 10 ML SDV IV ONE (04:30)
[2023-12-22 05:55] LABS: Urine Appearance Clear; Urine Bilirubin Negative (Negative); Urine Blood Negative (Negative); Urine Color Light-Yellow; Urine Glucose Negative (Negative); Urine Ketones Negative (Negative); Urine Nitrite Negative (Negative); Urine Protein Negative (Negative); Urine Specific Gravity 1.036 (1.002-1.030); Urine Urobilinogen Negative (Negative)
[2023-12-22 06:55] LABS: Urine Bacteria Absent /HPF (Absent); Urine Red Blood Cell Absent /HPF (0-Trace); Urine Squamous Epithelial Cell Present /HPF (Absent); Urine White Blood Cell 1+(6-10/hpf) /HPF (0-Trace)
[2023-12-22] MEDS: Ondansetron 4 mg VIAL 2 MG/ML 2 ml VIAL IV PRN (10:37)
[2023-12-22] MEDS: Acetaminophen IV 1 GM/100ML 1,000 MG/100 ML BAG IV PRN (10:37)
[2023-12-22] MEDS: Polyethylene Glycol 3350 17 GM PACKET PO SCH (10:38)
[2023-12-22] MEDS: fentaNYL PATCH 12 MCG/HR 1 PATCH TRANSDERM SCH (14:09)
[2023-12-22] MEDS: fentaNYL 100 mcg/2 ml 50 MCG/ML VIAL IV SLOW PU PRN (14:11)
[2023-12-22] MEDS: fentaNYL PATCH 50 MCG/HR 1 PATCH TRANSDERM SCH (15:04)
[2023-12-22] MEDS: Lactated Ringers 1000 ml BAG 1,000 ML IV SCH (17:28)
[2023-12-22] MEDS ORDERED: fentaNYL Patch Check Q Shift NOTE SCH (19:00)
[2023-12-22] MEDS: fentaNYL Patch Check Q Shift NOTE FOLLOW UP SCH (19:01)
[2023-12-23] MEDS ORDERED: cefTRIAXone 1 gm/50 mL D5W 1 GM/50 ML BAG IV SCH (12:00)
[2023-12-23] MEDS: cefTRIAXone 1 GM Q24H (ADVAN) IVPB SCH (12:33)
[2023-12-23] MEDS: fentaNYL PATCH 25 MCG/HR 1 PATCH TRANSDERM SCH (16:24)
[2023-12-23] MEDS ORDERED: Naloxone Nasal Spray 4 MG/0.1 ML NASAL.SPR INTRANASAL PRN (17:51)
[2023-12-23] MEDS: fentaNYL Patch Check Q Shift NOTE FOLLOW UP SCH (19:03)
[2023-12-23] MEDS: Lactated Ringers 1000 ml BAG 1,000 ML IV SCH (20:46)
[2023-12-24 07:36] LABS: ABS Lymphocytes 0.6 10^3/uL (1.0-4.8); ABS Monocytes 0.3 10^3/uL (0.0-0.9); Eosinophil % 0.7 %; Hematocrit 36.4 % (35-45); Hemoglobin 12.4 g/dL (11.5-14.3); Lymphocyte % 11.8 %; Mean Corpuscular Hemoglobin 30.3 pg (27-33); Mean Corpuscular Hgb Conc 33.9 g/dL (31-36); Mean Corpuscular Volume 89.3 fL (80-97); Mean Platelet Volume 7.6 fL (7.5-11.2); Platelet Count 166 10^3/uL (150-450); Red Blood Count 4.08 10^6/uL (3.63-4.92)
[2023-12-24 08:07] LABS: Calcium 8.7 mg/dL (8.6-10.3); Creatinine, Serum 0.6 mg/dL (0.51-0.95); Magnesium 1.7 mg/dL (1.9-2.7); Potassium 4.2 mmol/L (3.5-5.0); eGFR CKD-EPI 102.1 (>60)
[2023-12-24] MEDS: Dextrose 25% PED SYRINGE 10ml IV ONE (08:23)
[2023-12-24] MEDS: Dextrose 50% Syringe 50 ml 25 GM/50 ML SYRINGE IV PUSH ONE (08:28)
[2023-12-24] MEDS: Dextrose 50% Syringe 50 ml 25 GM/50 ML SYRINGE ONE (09:14)
[2023-12-24] MEDS: D5LR 1000 ml BAG 1,000 ML IV SCH (12:26)
[2023-12-25] MEDS: Lidocaine 1% MPF 5 ML VIAL INJ ONE (00:29)
[2023-12-25] MEDS: Sodium Chloride FLUSH 10 ml SYRINGE IV FLUSH SCH (00:35)
[2023-12-25] MEDS: D5LR 1000 ml BAG 1,000 ML IV SCH (12:01)
[2023-12-26 06:32] LABS: ABS Eosinophils 0.1 10^3/uL (0.0-0.5); ABS Lymphocytes 0.9 10^3/uL (1.0-4.8); ABS Monocytes 0.3 10^3/uL (0.0-0.9); ABS Neutrophils 1.6 10^3/uL (1.5-7.6); Eosinophil % 2.6 %; Hematocrit 36.1 % (35-45); Hemoglobin 12.3 g/dL (11.5-14.3); Lymphocyte % 30.3 %; Mean Corpuscular Hemoglobin 30.5 pg (27-33); Mean Corpuscular Hgb Conc 34.1 g/dL (31-36); Mean Corpuscular Volume 89.5 fL (80-97); Mean Platelet Volume 7.6 fL (7.5-11.2); Nucleated Red Blood Cells % 0.1 %/100WBC (0.0-0.8); Platelet Count 154 10^3/uL (150-450); Red Blood Count 4.04 10^6/uL (3.63-4.92); Red Cell Distribution Width 13.1 % (12-17); White Blood Count 2.8 10^3/uL (3.8-11.8)
[2023-12-26 07:23] LABS: Anion Gap 9 mmol/L (2-16); Blood Urea Nitrogen 10 mg/dL (6-24); CO2 Carbon Dioxide 27 mmol/L (22-32); Calcium 8.9 mg/dL (8.6-10.3); Chloride 104 mmol/L (101-111); Glucose 93 mg/dL (70-100); Magnesium 1.7 mg/dL (1.9-2.7); Sodium 140 mmol/L (135-145); eGFR CKD-EPI 106.6 (>60)
[2023-12-26] MEDS: Magnesium Sulfate 2 gm BAG 2 GM/50 ML BAG IVPB ONE (08:06)
[2023-12-27] MEDS: D5LR 1000 ml BAG 1,000 ML IV SCH (10:30)
[2023-12-28 06:23] LABS: ABS Eosinophils 0.1 10^3/uL (0.0-0.5); ABS Lymphocytes 0.8 10^3/uL (1.0-4.8); ABS Monocytes 0.3 10^3/uL (0.0-0.9); ABS Neutrophils 1.9 10^3/uL (1.5-7.6); ABS Nucleated RBC 0.02 10^3/ul; Eosinophil % 3.1 %; Hematocrit 33.8 % (35-45); Hemoglobin 11.5 g/dL (11.5-14.3); Lymphocyte % 24.8 %; Mean Corpuscular Hemoglobin 29.6 pg (27-33); Mean Corpuscular Hgb Conc 34.1 g/dL (31-36); Mean Platelet Volume 7.4 fL (7.5-11.2); Nucleated Red Blood Cells % 0.5 %/100WBC (0.0-0.8); Platelet Count 176 10^3/uL (150-450); Red Blood Count 3.88 10^6/uL (3.63-4.92); White Blood Count 3.1 10^3/uL (3.8-11.8)
[2023-12-28 06:33] LABS: Calcium 9.1 mg/dL (8.6-10.3); Creatinine, Serum 0.58 mg/dL (0.51-0.95); Magnesium 1.8 mg/dL (1.9-2.7); Potassium 3.7 mmol/L (3.5-5.0); eGFR CKD-EPI 102.9 (>60)
[2023-12-28] MEDS: Magnesium Sulfate 2 gm BAG 2 GM/50 ML BAG IVPB ONE (08:17)
[2023-12-28] MEDS: Lactated Ringers 1000 ml BAG 1,000 ML IV SCH (10:37)
[2023-12-30] MEDS: fentaNYL 100 mcg/2 ml 50 MCG/ML VIAL IV SLOW PU PRN (06:05)
[2023-12-30 06:23] LABS: ABS Eosinophils 0.1 10^3/uL (0.0-0.5); ABS Lymphocytes 0.9 10^3/uL (1.0-4.8); ABS Monocytes 0.3 10^3/uL (0.0-0.9); ABS Neutrophils 2.2 10^3/uL (1.5-7.6); Eosinophil % 2.9 %; Hematocrit 35.2 % (35-45); Lymphocyte % 25.7 %; Mean Corpuscular Hemoglobin 29.7 pg (27-33); Mean Corpuscular Volume 87.5 fL (80-97); Mean Platelet Volume 7.5 fL (7.5-11.2); Platelet Count 191 10^3/uL (150-450); Red Blood Count 4.03 10^6/uL (3.63-4.92); Red Cell Distribution Width 12.8 % (12-17); White Blood Count 3.5 10^3/uL (3.8-11.8)
[2023-12-30 06:59] LABS: Calcium 9.7 mg/dL (8.6-10.3); Creatinine, Serum 0.75 mg/dL (0.51-0.95); Magnesium 1.9 mg/dL (1.9-2.7); Potassium 4.1 mmol/L (3.5-5.0); eGFR CKD-EPI 90.5 (>60)
[2024-01-02] MEDS: SMOG Enema (MgOH-NS-Gly-MinO) 330 ML ENEMA PR ONE (14:25)
[2024-01-02] MEDS ORDERED: Senna TAB 8.6 mg TAB PO PRN (15:34)
[2024-01-03 11:03] VITALS: BP 114/75
== END 2024-01-03 11:28 | disposition home or self-care (01) | DRG 642 ==
LOC: EDHOLD 18:49 → ED 18:49 → SUATTDRO 12-22 04:50 → OBSVTOIN 12-22 04:50 → MED 12-22 12:47
PROVIDERS: ADMIT Internal Medicine; ATTEND Student in an Organized Health Care Education/Training Program